=== PATIENT | male | born 1960 | race Caucasian/White ===

== ENCOUNTER 2022-04-02 07:51 | Day surgery (SDC) | payer BC ==
[2022-04-01 11:39] VITALS: BMI 41.0
[2022-04-02] MEDS ORDERED: PROPOFOL 120 ML ONE (08:00)
[2022-04-02 12:06] VITALS: TEMP 98
[2022-04-02 12:14] VITALS: BP 127/86; PULSE 78; RESP 17
== END 2022-04-02 10:40 | disposition home or self-care (01) ==
LOC: FASU-ENDO 07:51
PROVIDERS: ATTEND Internal Medicine Gastroenterology
PROC: 0DBL8ZX Excision of Transverse Colon, Via Natural or Artificial Opening Endoscopic, Diagnostic (ICD-10-PCS; 2022-04-02)
PROC: 0DBK8ZX Excision of Ascending Colon, Via Natural or Artificial Opening Endoscopic, Diagnostic (ICD-10-PCS; principal; 2022-04-02 09:08)
DX: Z12.11 Encounter for screening for malignant neoplasm of colon (principal); D12.2 Benign neoplasm of ascending colon; D12.3 Benign neoplasm of transverse colon; Z86.010 Personal history of colon polyps
CPT/HCPCS: 88305-TC